=== PATIENT | male | born 1990 | race African-American/Black ===

== ENCOUNTER 2017-02-06 11:06 | Emergency (ER) | payer SELFPAY ==
[~2017-02-06] VITALS: Ht 172.7 cm; Wt 91.1 kg
[~2017-02-06 11:06] MED LIST: B-COCAP2 PO
[2017-02-06 11:11] VITALS: TEMP 36.4; Ht 172.7 cm; Wt 91.1 kg
[2017-02-06] MEDS ORDERED: ALBUT/IPRATROP 3MG/0.5MG NEB 3 ML VIAL INH STA (11:58)
[2017-02-06] MEDS ORDERED: VENL75CA73 PO (12:01)
--- NOTE | 2017-02-06 12:23 | DIAGNOSTIC IMAGING REPORT ---
CHEST 2 VIEWS ROUTINE CLINICAL HISTORY: COUGH AND WHEEZING X 1 WEEK COMPARISON STUDY: 09/21/2015 FINDINGS: The cardiac and mediastinal contours remain stable. There is no failure. Since the prior study, the patient developed a small right pleural effusion. There are streaky right lower lobe airspace opacities, likely inflammatory. Clinical and radiographic follow-up is recommended.[ IMPRESSION: 1. Interval development of a right pleural effusion, and streaky right lower lobe airspace opacities likely inflammatory. Films subsequent to treatment are recommended in follow-up. Electronically signed by: Doug Ward M.D. 02/06/2017 12:21 PM Dictated Date/Time: 02/06/2017 12:20 PM
[2017-02-06 13:05] VITALS: BP 135/99; PULSE 77; O2SAT 99
[2017-02-06] MEDS ORDERED: AZITHROMYCIN 250 MG TAB PO ONE (13:15)
[2017-02-06] MEDS ORDERED: VNTHFA/IN INH (13:32)
[2017-02-06] MEDS ORDERED: AZIT-60 PO (13:32)
[2017-02-06] MEDS ORDERED: PRED50TA PO (13:32)
--- NOTE | 2017-02-06 13:33 | EMERGENCY ROOM VISIT NOTE ---
ED Visit Note First contact with patient: 11:26 CC: Chest congestion 1 week HISTORY OF PRESENT ILLNESS: Patient is a 26-year-old male with past medical history significant for asthma who presents to the emergency department for evaluation of cough, wheezing and chest congestion. He has had symptoms for about a week. They started with some minor nasal congestion and a sore throat, which has subsequently resolved. He now notes congestion and tightness in the upper part of the chest. He has a cough productive of green mucus. He has not had a fever. He has a history of asthma which is generally well controlled. He states that he does not have an inhaler, but he typically uses Pro-Air. He denies any chest pain. He believes that he may have been hospitalized once for his asthma, has never been intubated. Has not been on any steroids recently. REVIEW OF SYSTEMS: Review of systems as per HPI. All other systems reviewed were negative. At least 6 systems reviewed. PMH: Electronic medical records are reviewed and summarized as above/below. See Problem List. SOCIAL HISTORY: Patient is a college student from [place] who lives locally in an apartment. He does not smoke PHYSICAL EXAM: Vital Signs: Reviewed Nurse's notes. Oxygen saturation is 95% on room air. No audible wheezing or conversational dyspnea. MENTAL STATUS: Alert and cooperative. Nontoxic appearing. HEAD: Atraumatic, without temporal or scalp tenderness. EYES: PERRL, EOMI, no discharge or injection. EARS: Tympanic membranes intact, not inflamed, have normal contour. External canals clear. NOSE: Nares patent, turbinates moist without rhinorrhea. MOUTH: Mucous membranes moist, no lesions, tongue and gums appear normal. THROAT: No pharyngeal injection, exudates, or tonsillar hypertrophy. Airway is patent. NECK: Supple, nontender, no lymphadenopathy. HEART: Regular rate and rhythm without murmurs, ectopy, gallops, or rubs. LUNGS: Breath sounds are diminished, with x-ray wheezes throughout, and few scattered rhonchi. SKIN: Normal. NEUROLOGICAL: Sensory and motor functions grossly intact. Normal gait. EMERGENCY DEPARTMENT COURSE: The patient was seen and assessed as above. His old records were reviewed. Patient was given a DuoNeb treatment and prednisone 60 mg orally. Chest x-ray was obtained with the findings noted below. Peak flow improved after the nebulizer treatment and on reexamination the wheezing had markedly improved. Supportive care measures were discussed, given the x- ray findings I have elected to treat him with antibiotics. He was given azithromycin 500 mg orally in the emergency department. He will be she was placed on a short course of oral prednisone and was given a prescription for an albuterol inhaler. He was educated on the worrisome signs or symptoms for which she should return to the emergency department. Differential diagnoses entertained included URI, bronchitis, acute asthma exacerbation, pneumonia, sinusitis, allergic reaction, among others. CHEST 2 VIEWS ROUTINE CLINICAL HISTORY: COUGH AND WHEEZING X 1 WEEK COMPARISON STUDY: 09/21/2015 FINDINGS: The cardiac and mediastinal contours remain stable. There is no failure. Since the prior study, the patient developed a small right pleural effusion. There are streaky right lower lobe airspace opacities, likely inflammatory. Clinical and radiographic follow-up is recommended.[ IMPRESSION: 1. Interval development of a right pleural effusion, and streaky right lower lobe airspace opacities likely inflammatory. Films subsequent to treatment are recommended in follow-up. Problem List Medical Problems: (1) Asthma Status: Chronic (2) Bronchitis Status: Resolved (3) Cough Status: Resolved (4) Dehydration Status: Resolved (5) Fever Status: Resolved (6) Headache Status: Resolved (7) Pharyngitis Status: Resolved Current/Historical Medications Scheduled Azithromycin (Zithromax), 250 MG PO DAILY Prednisone (Prednisone), 50 MG PO DAILY Venlafaxine Hcl (Venlafaxine Extended Rel), 75 MG PO DAILY Scheduled PRN Albuterol Hfa (Ventolin Hfa), 2 PUFFS INH Q4 PRN for SOB/Wheezing Allergies Coded Allergies: Promethazine (Verified Allergy, Intermediate, dillirium, 02/06/17) Vital Signs Date Time Temp Pulse Resp B/P Pulse Ox O2 Delivery O2 Flow Rate FiO2 02/06/17 13:05 77 17 135/99 99 02/06/17 11:13 94 Room Air 02/06/17 11:11 36.4 85 18 119/71 95 Room Air Medications Administered Medications (Trade) Dose Ordered Sig/Xander Route Start Time Stop Time Status Last Admin Dose Admin Prednisone (PredniSONE TAB) 60 mg NOW STAT PO 02/06/17 11:58 02/06/17 11:59 DC 02/06/17 12:09 60 MG Albuterol/ Ipratropium (Duoneb) 3 ml NOW STAT INH 02/06/17 11:58 02/06/17 11:59 DC 02/06/17 12:36 3 ML Azithromycin (Zithromax Tab) 500 mg NOW ONCE PO 02/06/17 13:15 02/06/17 13:16 DC 02/06/17 13:20 500 MG Departure Information Impression Primary Impression: Asthmatic bronchitis with acute exacerbation Prescriptions Albuterol Hfa (VENTOLIN HFA) 200 Puffs/48863 Mcg Aers 2 PUFFS INH Q4 Y for SOB/Wheezing, #1 INHALER 2 Refills Prov: Dottie Haq PA 02/06/17 Azithromycin (ZITHROMAX) 250 Mg Tab 250 MG PO DAILY, #4 TAB Prov: Dottie Haq PA 02/06/17 Prednisone (Prednisone) 50 Mg Tab 50 MG PO DAILY for 4 Days, #4 TAB Prov: Dottie Haq PA 02/06/17 Referrals [facility] (PCP) Patient Instructions [facility] Additional Instructions Albuterol Inhaler: Take 2 puffs every 4 hours for the next 3-5 days, then as needed for shortness of breath or wheezing. Prednisone 50mg: Once daily until the prescription is finished. It is best to take this earlier in the day as some patients note occasional difficulty falling asleep when taken in the late evening. Azithromycin(Zithromax) 250mg: Take one a day for 4 additional days. All antibiotics can cause diarrhea. If this occurs and you feel worse or it does not resolve in 1- 2 days follow up with your doctor or return to the Emergency Department as this could be signs of serious underlying problems. Any medication can cause an allergic reaction, stop the pills immediately and return to the ER for rash, hives, breathing difficulties, or swelling. Ibuprofen(Motrin, Advil) may be used for fever or pain. Use 600mg every six hours as needed. Take with food. Avoid using more than 2400mg in a 24 hour period. Do not use 2400mg per day for more than three consecutive days without physician direction. Prolonged inappropriate use can lead to stomach upset or ulcers. This is available over the counter and typically comes in 200mg tablets. (AND/OR) Acetaminophen(Tylenol) may be used for fever or pain. Use 1000mg every eight hours as needed. Avoid using more than 3000mg in a 24 hour period. This is available over the counter. Read all the package inserts or medication information paperwork provided. If you have any questions or concerns call your primary provider, pharmacist or the ER for assistance. Rest and drink plenty of fluids. Avoid smoke/smoking, fumes, dust, or any triggers in the past that may have affected your breathing. Continue current medications. Return to the ER for chest pain, difficulty breathing, fevers, vomiting, worsening of your condition, or as needed. Follow up with your primary physician this week for a recheck of your current condition.
== END 2017-02-06 13:41 | disposition home or self-care (01) ==
LOC: C.EDB 11:08 → C.EDC 13:41
DX: J45.901 Unspecified asthma with (acute) exacerbation (principal); Z79.52 Long term (current) use of systemic steroids